=== PATIENT | male | born 1965 | race Caucasian/White ===

== ENCOUNTER 2019-07-12 09:35 | Day surgery (SDC) | payer OTHER ==
[~2019-07-12] VITALS: Ht 165.1 cm; Wt 82.4 kg
[~2019-07-12 09:35] MED LIST: ASPIRIN; ATENOLOL
[2019-07-12 10:14] VITALS: Ht 165.1 cm; Wt 82.4 kg
[2019-07-12 10:45] VITALS: BP 123/79; PULSE 88; RESP 18
[2019-07-12] MEDS ORDERED: LIDOCAINE 100 MG SYRINGE ONE (11:13)
[2019-07-12] MEDS ORDERED: PROPOFOL 40 ML ONE (11:13)
[2019-07-12 12:25] VITALS: BP 126/60; PULSE 64; RESP 15
== END 2019-07-12 14:39 | disposition home or self-care (01) ==
LOC: GIL 09:35
PROVIDERS: ATTEND Internal Medicine Gastroenterology
DX: Z12.11 Encounter for screening for malignant neoplasm of colon (principal); D12.5 Benign neoplasm of sigmoid colon; K64.8 Other hemorrhoids; I10 Essential (primary) hypertension
CPT/HCPCS: 88305; J2001